=== PATIENT | female | born 1930 | race Caucasian/White ===

== ENCOUNTER 2016-08-27 09:54 | Inpatient (IN) | payer OTHER, MEDICARE ==
[~2016-08-27] VITALS: Ht 149.9 cm; Wt 92.7 kg
[~2016-08-27 09:54] MED LIST: ADULT LOW DOSE81 M1 PO; ALEVE PM CAPLE1 EACH PO; ANTIVERT25 MG PO; ASPIR 8181 M1 PO; ASPIRIN325 MG PO; BENICAR20 MG PO; BREO ELLIPTA I1 EACH IH; CYANOCOBAL1000 MCG/2 IM; DELTASONE20 M1 PO; ENDOCET 5-3251 EACH PO; FEROSUL325 MG PO; FERROUS SULFAT325 MG PO; FUROSEMIDE40 MG PO; HEPARIN SO5000 UNITS SC; HYDROCHLOROTHIA25 MG PO; IMDUR30 MG PO; K-DUR20 MEQ PO; LASIX40 MG PO; LEVOTHROID,SY0.05 MG PO; LEVOTHYROXINE50 MCG PO; LIPITOR10 MG PO; LOPRESSOR25 MG PO; PLAVIX75 MG PO; PREDNISONE1 MG PO; PREDNISONE5 MG PO; PRILOSEC40 MG PO; PROAIR HFA8.5 GM IH; PROTONIX40 MG PO; PriLOSEC PO; ROCEPHIN2 GM/50 ML IV; SPIRIVA RESPIMAT4 GM IH; SYMBICORT60 INHALA1 IH; VITAMIN D-32000 UNI2 PO; VITAMIN D35000 UNIT PO
[2016-08-27 11:20] LABS: HEMATOCRIT 33.3 % (36.0-46.0); MCH 27.2 PG (29.0-34.0); MCHC 30.3 G/DL (30.0-36.0); MCV 89.8 FL (83-99); MEAN PLAT.VOLUME 9.9 uM^3 (9.5-12.4); PLATELET COUNT 345 K/uL (156-360); RBC DIS.WIDTH-CV 15.6 % (11.8-14.6); RBC DIS.WIDTH-SD 49.7 % (39-53); RED BLOOD COUNT 3.71 M/uL (3.80-5.20); WHITE BLOOD COUNT 7.2 K/uL (4.1-10.2)
[2016-08-27 11:33] LABS: CHLORIDE 107 mEq/L (99-109); POTASSIUM 4.3 mEq/L (3.7-5.4); SODIUM 144 mEq/L (136-147)
[2016-08-27 11:35] LABS: GLUCOSE 96 mg/dL (70-99)
[2016-08-27 11:36] LABS: ANION GAP 11 MEQ/L (2-14)
[2016-08-27 11:39] LABS: GFR ESTIMATE (CALCULATED) 50 mL/min/; UREA NITROGEN (BUN) 17 mg/dL (9-23)
[2016-08-27 11:43] LABS: TROP-I INTERPRETATION NEGATIVE; TROPONIN-I 0.01 ng/mL (0.0-0.30)
[2016-08-27 17:44] VITALS: BP 173/79
[2016-08-27 20:35] LABS: METH RESISTANT S AUREUS PCR NEGATIVE (NEGATIVE)
[2016-08-27 20:42] LABS: PROBE CHECK PASS; SPECIMEN PROCESSING CONTROL PASS
[2016-08-27 23:59] VITALS: BP 142/65
[2016-08-28 05:35] VITALS: BP 169/79
[2016-08-28 09:12] LABS: HEMATOCRIT 35.4 % (36.0-46.0); MCH 27.4 PG (29.0-34.0); MCHC 29.9 G/DL (30.0-36.0); MCV 91.5 FL (83-99); MEAN PLAT.VOLUME 10.4 uM^3 (9.5-12.4); PLATELET COUNT 334 K/uL (156-360); RBC DIS.WIDTH-CV 16.1 % (11.8-14.6); RBC DIS.WIDTH-SD 53.3 % (39-53); RED BLOOD COUNT 3.87 M/uL (3.80-5.20); WHITE BLOOD COUNT 6.9 K/uL (4.1-10.2)
[2016-08-28 09:38] LABS: ALKALINE PHOSPHATASE 72 IU/L (3-129); ANION GAP 11 MEQ/L (2-14); CHLORIDE 104 MEQ/L (99-109); GFR ESTIMATE (CALCULATED) 45 mL/min/; GLUCOSE 117 mg/dL (70-99); POTASSIUM 4.3 MEQ/L (3.7-5.4); SAMPLE HEMOLYSIS CHECK 0; SAMPLE ICTERIC CHECK 0; SAMPLE LIPEMIA CHECK 0; SODIUM 141 MEQ/L (136-147); TOTAL BILIRUBIN 0.8 MG/DL (0.0-1.0); UREA NITROGEN (BUN) 18 mg/dL (9-23)
[2016-08-28 10:09] VITALS: BP 189/87
[2016-08-28 15:51] VITALS: BP 146/67
[2016-08-29 04:32] VITALS: BP 140/67
[2016-08-29 15:09] VITALS: BP 156/71
[2016-08-30 05:57] VITALS: BP 134/61
[2016-08-30 15:17] VITALS: BP 156/70
[2016-08-31 05:44] VITALS: BP 137/67
[2016-08-31 14:57] VITALS: BP 135/63
[2016-09-01 05:29] VITALS: BP 144/63
[2016-09-01 15:24] VITALS: BP 145/62
[2016-09-02 05:30] VITALS: BP 141/71
[2016-09-02 15:46] VITALS: BP 139/78
[2016-09-03 05:34] VITALS: BP 133/61
[2016-09-03 15:21] VITALS: BP 122/58
[2016-09-04 04:58] VITALS: BP 147/67
[2016-09-04 14:56] VITALS: BP 130/68
[2016-09-04 15:18] VITALS: BP 100/50; BP 181/95
[2016-09-05 04:17] VITALS: BP 179/83
[2016-09-05 14:31] VITALS: BP 149/71
[2016-09-05] MEDS ORDERED: ACETAMINOPHEN-1 EAC1 PO (21:00)
[2016-09-05] MEDS ORDERED: LIDOCAINE700 MG TD (21:00)
[2016-09-06 05:37] VITALS: BP 146/74
== END 2016-09-06 11:15 | disposition home health service (06) | DRG 556 ==
LOC: EME → EDBD 09:54 → 3WEST 17:15
PROVIDERS: Emergency Medicine; Physical Medicine & Rehabilitation Pain Medicine
DX: R26.2 Difficulty in walking, not elsewhere classified (principal); M70.61 Trochanteric bursitis, right hip; M48.07 Spinal stenosis, lumbosacral region; M47.27 Other spondylosis with radiculopathy, lumbosacral region; M16.11 Unilateral primary osteoarthritis, right hip; G89.29 Other chronic pain; I10 Essential (primary) hypertension; K21.9 Gastro-esophageal reflux disease without esophagitis; R42 Dizziness and giddiness; M19.011 Primary osteoarthritis, right shoulder; M19.012 Primary osteoarthritis, left shoulder; M35.3 Polymyalgia rheumatica; I50.9 Heart failure, unspecified; E03.9 Hypothyroidism, unspecified; I25.2 Old myocardial infarction; Z95.5 Presence of coronary angioplasty implant and graft; D64.9 Anemia, unspecified; Z85.3 Personal history of malignant neoplasm of breast; E66.9 Obesity, unspecified; Z68.41 Body mass index [BMI] 40.0-44.9, adult; Z90.12 Acquired absence of left breast and nipple
CPT/HCPCS: 71010; 72100; 72148; 73502; 73700; 80048; 80053; 81003; 84484; 85027; 87641; 93005; 94640 76; 94760; 97110 GO; 97530 GP; 99202; 99281; 99285; G8978 GP CJ; G8979 GP CI; G8987 GO CJ; G8988 CI; G8989 GO CH; J1030; J1650; J2405; J3010; J7512

== ENCOUNTER 2016-11-27 12:21 | Day surgery (SDC) | payer OTHER, MEDICARE ==
[~2016-11-27] VITALS: Ht 149.9 cm; Wt 90.3 kg
[~2016-11-27 12:21] MED LIST changes: +ACETAMINOPHEN-1 EAC1 PO; +LIDOCAINE700 MG TD
== END 2016-11-27 13:26 | disposition home or self-care (01) ==
LOC: PAIN 12:21 → SDC 12:45 → PAIN 12:45
DX: M54.16 Radiculopathy, lumbar region (principal); E03.9 Hypothyroidism, unspecified; M17.10 Unilateral primary osteoarthritis, unspecified knee; M16.10 Unilateral primary osteoarthritis, unspecified hip; M48.06 Spinal stenosis, lumbar region; I10 Essential (primary) hypertension; Z86.718 Personal history of other venous thrombosis and embolism; J44.9 Chronic obstructive pulmonary disease, unspecified; K21.9 Gastro-esophageal reflux disease without esophagitis; D50.9 Iron deficiency anemia, unspecified; E55.9 Vitamin D deficiency, unspecified; Z79.82 Long term (current) use of aspirin; Z79.899 Other long term (current) drug therapy
CPT/HCPCS: J1100

== ENCOUNTER 2016-12-25 10:16 | Day surgery (SDC) | payer OTHER, MEDICARE ==
[~2016-12-25] VITALS: Ht 149.9 cm; Wt 89.8 kg
== END 2016-12-25 12:10 | disposition home or self-care (01) ==
LOC: PAIN 10:16 → SDC 11:00 → PAIN 12:10
PROC: 3E0S33Z Introduction of Anti-inflammatory into Epidural Space, Percutaneous Approach (ICD-10-PCS; principal; 2016-12-25)
DX: M54.16 Radiculopathy, lumbar region (principal); F41.9 Anxiety disorder, unspecified; M17.10 Unilateral primary osteoarthritis, unspecified knee; M48.06 Spinal stenosis, lumbar region; M16.10 Unilateral primary osteoarthritis, unspecified hip; E03.9 Hypothyroidism, unspecified; R26.2 Difficulty in walking, not elsewhere classified; J44.9 Chronic obstructive pulmonary disease, unspecified; I10 Essential (primary) hypertension; K21.9 Gastro-esophageal reflux disease without esophagitis; Z60.2 Problems related to living alone; Z79.82 Long term (current) use of aspirin; Z88.8 Allergy status to other drugs, medicaments and biological substances
CPT/HCPCS: J1100; J2250; J3010

== ENCOUNTER 2017-07-02 10:34 | Day surgery (SDC) | payer OTHER, MEDICARE | END 2017-07-02 11:55 | disposition home or self-care (01) | LOC: PAIN 10:34 → SDC 11:00 → PAIN 11:55 | DX: M54.16 Radiculopathy, lumbar region (principal); M48.061 Spinal stenosis, lumbar region without neurogenic claudication; I10 Essential (primary) hypertension; J44.9 Chronic obstructive pulmonary disease, unspecified; K21.9 Gastro-esophageal reflux disease without esophagitis; M16.10 Unilateral primary osteoarthritis, unspecified hip; E50.9 Vitamin A deficiency, unspecified; I82.509 Chronic embolism and thrombosis of unspecified deep veins of unspecified lower extremity; Z79.82 Long term (current) use of aspirin | CPT/HCPCS: J1100; J3010 ==

== ENCOUNTER 2017-07-30 10:16 | Day surgery (SDC) | payer OTHER, MEDICARE ==
[~2017-07-30] VITALS: Ht 149.9 cm; Wt 90.3 kg
== END 2017-07-30 11:32 | disposition home or self-care (01) ==
LOC: PAIN 10:16 → SDC 11:15 → PAIN 11:15
PROC: 3E0R33Z Introduction of Anti-inflammatory into Spinal Canal, Percutaneous Approach (ICD-10-PCS; principal; 2017-07-30)
PROC: 3E0R3BZ Introduction of Anesthetic Agent into Spinal Canal, Percutaneous Approach (ICD-10-PCS; principal; 2017-07-30)
DX: M47.26 Other spondylosis with radiculopathy, lumbar region (principal); G89.29 Other chronic pain; M54.5 Low back pain; M48.061 Spinal stenosis, lumbar region without neurogenic claudication; I25.2 Old myocardial infarction; E03.9 Hypothyroidism, unspecified; I11.0 Hypertensive heart disease with heart failure; I50.9 Heart failure, unspecified; I82.509 Chronic embolism and thrombosis of unspecified deep veins of unspecified lower extremity; J44.9 Chronic obstructive pulmonary disease, unspecified; K21.9 Gastro-esophageal reflux disease without esophagitis; D50.9 Iron deficiency anemia, unspecified; Z88.5 Allergy status to narcotic agent; Z95.5 Presence of coronary angioplasty implant and graft; Z79.82 Long term (current) use of aspirin
CPT/HCPCS: J1100

== ENCOUNTER 2018-01-04 09:52 | Day surgery (SDC) | payer OTHER, MEDICARE ==
[~2018-01-04] VITALS: Ht 149.9 cm; Wt 92.1 kg
[~2018-01-04 09:52] MED LIST changes: +BUMEX1 MG PO; +TOPROL XL100 MG PO
== END 2018-01-04 11:20 | disposition home or self-care (01) ==
LOC: PAIN 09:52 → SDC 10:15 → PAIN 11:20
DX: M54.16 Radiculopathy, lumbar region (principal); M48.061 Spinal stenosis, lumbar region without neurogenic claudication; I10 Essential (primary) hypertension; J44.9 Chronic obstructive pulmonary disease, unspecified; K21.9 Gastro-esophageal reflux disease without esophagitis; E03.9 Hypothyroidism, unspecified; I25.2 Old myocardial infarction; Z79.82 Long term (current) use of aspirin
CPT/HCPCS: J1100

== ENCOUNTER 2018-01-07 09:27 | Emergency (ER) | payer OTHER, MEDICARE ==
[~2018-01-07] VITALS: Ht 149.9 cm; Wt 97.2 kg
[2018-01-07 10:35] LABS: BASOPHIL (%) 0.2 % (0-1); EOSINOPHIL (%) 0.3 % (0-5); HEMOGLOBIN 9.1 G/DL (11.9-15.5); IMMATURE GRANULOCYTE (%) 0.8 % (0.0-0.7); LYMPHOCYTE (%) 13.2 % (15-42); LYMPHOCYTE COUNT 1.3 K/uL (1.0-2.8); MCH 25.1 PG (29.0-34.0); MCHC 29.4 G/DL (30.0-36.0); MCV 85.4 FL (83-99); MONOCYTE (%) 6.6 % (3-12); MONOCYTE COUNT 0.7 K/uL (0-0.8); NEUTROPHIL (%) 78.9 % (45-76); NEUTROPHIL COUNT 7.9 K/uL (1.8-6.4); PLATELET COUNT 535 K/uL (156-360); RBC DIS.WIDTH-CV 16.9 % (11.8-14.6); RED BLOOD COUNT 3.63 M/uL (3.80-5.20)
[2018-01-07 10:47] LABS: CHLORIDE 105 mEq/L (99-109); POTASSIUM 3.7 mEq/L (3.7-5.4); SODIUM 144 mEq/L (136-147)
[2018-01-07 10:49] LABS: GLUCOSE 93 mg/dL (70-99)
[2018-01-07 10:52] LABS: GFR ESTIMATE (CALCULATED) 56 mL/min/
[2018-01-07 10:53] LABS: UREA NITROGEN (BUN) 16 mg/dL (9-23)
[2018-01-07] MEDS ORDERED: ANTIVERT25 MG PO (13:35)
[2018-01-07 13:45] VITALS: BP 148/71
== END 2018-01-07 13:45 | disposition home or self-care (01) ==
LOC: EME 09:27
PROVIDERS: Emergency Medicine
DX: R42 Dizziness and giddiness (principal); R51 Headache; R11.0 Nausea; M54.2 Cervicalgia; I50.9 Heart failure, unspecified; I11.0 Hypertensive heart disease with heart failure; I25.2 Old myocardial infarction; Z95.5 Presence of coronary angioplasty implant and graft; M19.012 Primary osteoarthritis, left shoulder; Z90.12 Acquired absence of left breast and nipple; Z85.3 Personal history of malignant neoplasm of breast; Z90.710 Acquired absence of both cervix and uterus; Z79.82 Long term (current) use of aspirin; Z79.52 Long term (current) use of systemic steroids; Z87.01 Personal history of pneumonia (recurrent)
CPT/HCPCS: 70450; 71045; 80048; 85025; 94640; 99281; 99285; J1885; J2765; J7030

== ENCOUNTER 2018-01-13 10:51 | Emergency (ER) | payer OTHER, MEDICARE ==
[~2018-01-13] VITALS: Ht 149.9 cm; Wt 93.8 kg
[2018-01-13 11:22] LABS: BASOPHIL (%) 0.1 % (0-1); EOSINOPHIL (%) 0.7 % (0-5); EOSINOPHIL COUNT 0.1 K/uL (0-0.3); HEMATOCRIT 30.4 % (36.0-46.0); HEMOGLOBIN 8.9 G/DL (11.9-15.5); IMMATURE GRANULOCYTE (%) 1.1 % (0.0-0.7); LYMPHOCYTE (%) 8.2 % (15-42); LYMPHOCYTE COUNT 1.2 K/uL (1.0-2.8); MCH 25.1 PG (29.0-34.0); MCHC 29.3 G/DL (30.0-36.0); MCV 85.6 FL (83-99); MONOCYTE (%) 7.4 % (3-12); MONOCYTE COUNT 1.1 K/uL (0-0.8); NEUTROPHIL (%) 82.5 % (45-76); NEUTROPHIL COUNT 11.7 K/uL (1.8-6.4); PLATELET COUNT 453 K/uL (156-360); RBC DIS.WIDTH-SD 56.5 % (39-53); RED BLOOD COUNT 3.55 M/uL (3.80-5.20); WHITE BLOOD COUNT 14.2 K/uL (4.1-10.2)
[2018-01-13 11:30] LABS: CHLORIDE 104 mEq/L (99-109); POTASSIUM 3.9 mEq/L (3.7-5.4); SODIUM 144 mEq/L (136-147)
[2018-01-13 11:31] LABS: GLUCOSE 97 mg/dL (70-99)
[2018-01-13 11:35] LABS: GFR ESTIMATE (CALCULATED) 56 mL/min/
[2018-01-13 11:36] LABS: UREA NITROGEN (BUN) 15 mg/dL (9-23)
[2018-01-13 14:23] VITALS: BP 127/63
== END 2018-01-13 14:23 | disposition home or self-care (01) ==
LOC: EME 10:51
PROVIDERS: Emergency Medicine
DX: S09.90XA Unspecified injury of head, initial encounter (principal); S30.0XXA Contusion of lower back and pelvis, initial encounter; M25.551 Pain in right hip; R10.2 Pelvic and perineal pain; W18.30XA Fall on same level, unspecified, initial encounter; M85.88 Other specified disorders of bone density and structure, other site; M51.37 Other intervertebral disc degeneration, lumbosacral region; M48.061 Spinal stenosis, lumbar region without neurogenic claudication; R94.31 Abnormal electrocardiogram [ECG] [EKG]; I10 Essential (primary) hypertension; I25.2 Old myocardial infarction; Z95.5 Presence of coronary angioplasty implant and graft; Z85.3 Personal history of malignant neoplasm of breast; Z90.12 Acquired absence of left breast and nipple; Z90.710 Acquired absence of both cervix and uterus; Z79.82 Long term (current) use of aspirin; Z79.52 Long term (current) use of systemic steroids
CPT/HCPCS: 70450; 72131; 73502; 80048; 85025; 93005; 99281; 99284